=== PATIENT | female | born 1985 | race Caucasian/White ===

== ENCOUNTER 2021-12-28 20:53 | Emergency (ER) | payer MEDICAID ==
[~2021-12-28] VITALS: Ht 165.1 cm; Wt 59.6 kg
[2021-12-28 21:18] VITALS: BP 146/87
[2021-12-28] MEDS ORDERED: DOXY100T PO (21:35)
[2021-12-28] MEDS ORDERED: FLUC150T PO (21:37)
--- NOTE | 2021-12-28 21:37 | PHYS DOC ---
Past History Past Surgical History: Hysterectomy (ROBERT NYE APRN) Alcohol Use: None (ROBERT NYE APRN) General Adult EDM: Chief Complaint: VAGINAL PROBLEM HPI: HPI: Patient presents to the emergency department today with a 2-week history of white vaginal discharge with vaginal itching. She reports that today she noticed mild swelling of her labia. She has been using Monistat cream without any improvement in her symptoms. Patient has a history of a hysterectomy. She denies fevers, vaginal bleeding, vomiting, urinary symptoms, abdominal pain, pelvic pain. (ROBERT NYE APRN) Review of Systems: Review of Systems: Constitutional: See HPI GI: See HPI : See HPI (ROBERT NYE APRN) Allergies: Allergies: Allergies Coded Allergies Type Severity Reaction Last Updated Verified No Known Drug Allergies 12/28/21 No (ROBERT NYE APRN) Physical Exam: PE: Constitutional: Well developed, well nourished, no acute distress, non-toxic appearance. [] HENT: Normocephalic, atraumatic, bilateral external ears normal, oropharynx moist, no oral exudates, nose normal. [] Eyes: PERRL, EOMI, conjunctiva normal, no discharge. [] Neck: Normal range of motion, no stridor Cardiovascular: Normal peripheral perfusion Lungs & Thorax: Normal work of breathing, no tachypnea Abdomen: Soft and flat Skin: Warm, dry, no erythema, no rash. [] Back: Normal range of motion Extremities: No tenderness, no cyanosis, no clubbing, ROM intact, no edema. [] Neurologic: Alert and oriented X 3, normal motor function, normal sensory function, no focal deficits noted. [] Psychologic: Affect normal, judgement normal, mood normal. [] Pelvic exam: external genitalia: mild swelling noted to left labia minora, no erythema or wounds noted Internal genitalia: small amount of thick white vaginal discharge noted-patient reports she recently used monistat No tenderness, no vaginal bleeding noted (ROBERT NYE APRN) Current Patient Data: Labs: Laboratory Tests Test 12/28/21 21:05 Urine Collection Type Unknown Urine Color Yellow Urine Clarity Clear Urine pH 7.0 Urine Specific Mobile 1.020 Urine Protein Neg Urine Glucose (UA) Neg mg/dL Urine Ketones (Stick) Neg mg/dL Urine Blood Neg Urine Nitrite Neg Urine Bilirubin Neg Urine Urobilinogen Dipstick 0.2 mg/dL Urine Leukocyte Esterase Neg Urine RBC 0 /HPF Urine WBC Occ /HPF Urine Squamous Epithelial Cells Few /LPF Urine Bacteria 0 /HPF Current Medications Medications (Trade) Dose Ordered Sig/[place] Route PRN Reason Start Time Stop Time Status Last Admin Dose Admin Ceftriaxone Sodium (Rocephin Im) 500 mg 1X ONCE IM 12/28/21 21:45 12/28/21 21:46 UNV Doxycycline Hyclate (Vibra-Tab) 100 mg 1X ONCE PO 12/28/21 21:45 12/28/21 21:46 UNV Vital Signs: Vital Signs Date Time Temp Pulse Resp B/P (MAP) Pulse Ox O2 Delivery O2 Flow Rate FiO2 12/28/21 21:18 98.0 111 20 146/87 (106) 99 Room Air (ROBERT NYE APRN) EKG: EKG: [] (ROBERT NYE APRN) Radiology/Procedures: Radiology/Procedures: [] (ROBERT NYE APRN) Heart Score: C/O Chest Pain: N/A Risk Factors: Risk Factors: DM, Current or recent (<one month) smoker, HTN, HLP, family history of CAD, obesity. Risk Scores: Score 0 - 3: 2.5% MACE over next 6 weeks - Discharge Home Score 4 - 6: 20.3% MACE over next 6 weeks - Admit for Clinical Observation Score 7 - 10: 72.7% MACE over next 6 weeks - Early Invasive Strategies (ROBERT NYE APRN) Course & Med Decision Making: Course & Med Decision Making Pertinent Labs and Imaging studies reviewed. (See chart for details) Patient presents to the emergency department today with a 2-week history of thick white vaginal discharge with vaginal itching and swelling to her labia. Patient does have mild swelling to her labia minora upon physical exam and also has thick white vaginal discharge. Patient was swabbed for gonorrhea, chlamydia and a wet prep. Wet prep was negative for yeast, trichamonas, and clue cells. UA unremarkable. Patient has concern for STIs and would like to be prophylactically treated. Patient also reports that anytime she is placed on antibiotic she develops a yeast infection therefore Diflucan will be ordered for her. Patient will be notified of STI results when they become available in approximately 2 days. She is advised to stand from sexual intercourse for 14 days and if positive notify her sexual partners. I discussed with patient all findings and diagnostic testing as well as the need to follow-up with PCP for further evaluation and treatment or return to the ER if any new or worsening symptoms. Strict return precautions were also discussed at length. Patient voiced understanding and agreement with the plan. Patient is hemodynamically stable at the time of disposition. (ROBERT NYE APRN) Course & Med Decision Making Did not see or evaluate patient. Did not discuss patient with [employer] OPERATOR. General agree with [employer] UP OPERATOR's work-up and disposition per note. (ABHISHEK PARRISH MD) Dragon Disclaimer: Dragon Disclaimer: This electronic medical record was generated, in whole or in part, using a voice recognition dictation system. (ROBERT NYE APRN) Departure Departure: Impression: Primary Impression: Screen for sexually transmitted diseases Additional Impression: Vaginal discharge Disposition: HOME / SELF CARE / HOMELESS Condition: GOOD Referrals: PCP,NO (PCP) Patient Instructions: Sexually Transmitted Disease Additional Instructions: You were seen in the emergency department today for vaginal discharge. We tested you in the emergency department for yeast, bacterial vaginosis, gonorrhea , chlamydia and trichomonas. You were negative for trichomomas, bacterial vaginosis and yeast. You requested to be prophylactically treated for gonorrhea, chlamydia. You were given a shot in the emergency department and will be discharged home with an antibiotic. Please start and finish the antibiotic completely. You also requested treatment with Diflucan which was provided for you. Please abstain from sexual intercourse for 14 days. You will receive a notification via telephone of your STI results in approximately 2 days. If positive, please notify your sexual partners. Follow-up with your primary care provider or [facility] tomorrow regarding your ER visit. Return to the emergency department if you develop abdominal pain, high fevers refractory to treatment, tractable nausea or vomiting, worsening of your symptoms, vaginal bleeding or any new or worsening concerns. Scripts Fluconazole (DIFLUCAN) 150 Mg Tablet 1 TAB PO ONCE for dequan infection for 1 Day, #1 TAB 1 Refill Prov: ROBERT NYE APRN 12/28/21 Doxycycline Hyclate (DOXYCYCLINE HYCLATE) 100 Mg Tablet 1 TAB PO BID for infection for 7 Days, #14 TAB 0 Refills Prov: ROBERT NYE APRN 12/28/21 ROBERT NYE APRN Dec 28, 2021 21:37 ABHISHEK PARRISH MD Dec 28, 2021 23:06
[2021-12-28] MEDS ORDERED: DOXYCYCLINE HYCLATE 100 MG TABLET PO ONE (21:45)
[2021-12-28] MEDS ORDERED: cefTRIAXone IM 500 MG VIAL. IM ONE (21:45)
[2021-12-28 21:53] LABS: BACTERIA,URINE 0 /HPF (0-FEW); BILIRUBIN,URINE NEG (NEG); CLARITY,URINE CLEAR; COLOR,URINE YELLOW; GLUCOSE,URINE NEG (NEG); NITRITE,URINE NEG (NEG); RBC,URINE 0 /HPF (0-2); SQUAMOUS EPITHELIAL CELL,UR FEW /LPF; UROBILINOGEN,URINE 0.2 mg/dL (0.2 mg/dL); WBC,URINE OCC /HPF (0-4)
[2022-01-01 20:07] LABS: CHLAMYDIA PROBE Negative (Negative)
== END 2021-12-28 22:17 | disposition home or self-care (01) ==
LOC: ER 20:53
DX: Z11.3 Encounter for screening for infections with a predominantly sexual mode of transmission (principal); N89.8 Other specified noninflammatory disorders of vagina; Z90.710 Acquired absence of both cervix and uterus
CPT/HCPCS: 81001; 87491; 87591; 96372; 99284; J0696; Q0111